=== PATIENT | female | born 1970 | race American Indian/Alaskan Native ===

== ENCOUNTER 2018-04-24 07:14 | Day surgery (SDC) | payer OTHER ==
--- NOTE | 2018-04-24 07:56 | Short Stay Summary ---
Short Stay Documentation Date of service: 04/24/18 Narrative H&P: 47y/o with abnormal uterine bleeding. Pelvic ultrasound demonstrates an endometrial polyp. - History Principal diagnosis: Endometrial polyp; DUB Past Medical History: diabetes, hypertension Past Surgical History: , Other (hand surgery) Social history: - Allergies and Medications Current Medications: Allergies No Known Allergies Allergy (Verified 04/22/18 12:04) Home Medications Medication Instructions Recorded Confirmed Last Taken Type Carvedilol [Coreg] 12.5 mg PO BID 04/22/18 04/22/18 Unknown History Hydralazine HCl 50 mg PO TID 04/22/18 04/22/18 Unknown History Insulin Glargine,Hum.rec.anlog 30 units SQ QHS 04/22/18 04/22/18 Unknown History [Lantus] Insulin Lispro [Humalog 100 0 units SQ AC 04/22/18 04/22/18 Unknown History UNITS/ML Kwikpen] Linagliptin [Tradjenta] 5 mg PO DAILY 04/22/18 04/22/18 Unknown History Losartan Potassium 25 mg PO DAILY 04/22/18 04/22/18 Unknown History amLODIPine [Norvasc] 10 mg PO DAILY 04/22/18 04/22/18 Unknown History - Physical exam General appearance: no acute distress Integumentary: no rash HEENT: Atraumatic Lungs: Clear to auscultation Breasts: deferred Heart: Regular rate Gastrointestinal: normal Female Genitourinary: deferred Rectal Exam: deferred - Brief post op/procedure progress note Date of procedure: 04/24/18 Pre-op diagnosis: dysfunctional uterine bleeding Post-op diagnosis: same Procedure: Hysteroscopy Endometrial ablation via NovaSure Anesthesia: GETA Surgeon: ANIKA STEWARD Estimated blood loss: minimal Pathology: none Condition: stable - Hospital course Hospital course: The patient was admitted the day of surgery and underwent an an immature ovulation. Please see operative note for details of surgery. Her postoperative course was uneventful. - Disposition Condition at discharge: Good Disposition: DC-01 TO HOME OR SELFCARE Short Stay Discharge Plan Activity: other (pelvic rest for 1 week) Diet: regular Additional Instructions: Scheduled follow-up with Dr. Ortega and 4 weeks Prescriptions: Ibuprofen [Motrin] 800 mg PO Q8HR PRN #60 tablet PRN Reason: Pain, Mild (1-3) oxyCODONE /ACETAMINOPHEN [Percocet 5/325] 1 tab PO Q6HR PRN #30 tablet PRN Reason: Pain
--- NOTE | 2018-04-24 09:07 | Anesthesia Day of Surgery ---
Anesthesia Day of Surgery - Day of Surgery Patient Examined: Yes Patient H&P Reviewed: Yes Patient is NPO: Yes Beta Blockers: Yes
--- NOTE | 2018-04-24 09:07 | Anesthesia Consultation ---
Anesthesia Consult and Med Hx Date of service: 04/24/18 - Airway Anesthetic Teeth Evaluation: Good ROM Head & Neck: Adequate Mental/Hyoid Distance: Adequate Mallampati Class: Class I Intubation Access Assessment: Good - Pulmonary Exam CTA: Yes - Cardiac Exam Cardiac Exam: RRR - Pre-Operative Health Status ASA Pre-Surgery Classification: ASA3 Proposed Anesthetic Plan: General - Pre-Anesthesia Comment Pre-Anesthesia Comments: patient took half lantus dose last night - Pulmonary Hx Smoking: No SOB: No - Cardiovascular System Hx Hypertension: Yes (15 YEARS) Hx Heart Attack/AMI: No Hx Angina: No - Central Nervous System Hx Seizures: No CVA: No Hx Psychiatric Problems: No - Gastrointestinal Hx Ulcer: No Hx Gastroesophageal Reflux Disease: No - Endocrine Hx Renal Disease: Yes (STAGE 3) - Other Systems Hx Alcohol Use: No Hx Substance Use: No Hx Cancer: No
[2018-04-24] MEDS ORDERED: NARCAN 0.4 MG/1 ML IV PRN (09:08)
[2018-04-24] MEDS ORDERED: TYLENOL PO PRN (09:08)
[2018-04-24] MEDS ORDERED: TORADOL IV PRN (09:08)
[2018-04-24] MEDS ORDERED: ZOFRAN IV PRN (09:08)
[2018-04-24] MEDS ORDERED: DILAUDID IV PRN (09:08)
[2018-04-24] MEDS ORDERED: DEMEROL IV PRN (09:08)
[2018-04-24] MEDS ORDERED: VERSED IV NR (09:25)
[2018-04-24 09:58] LABS: Hematocrit 24.2 % (30.3-42.9); Hemoglobin 7.9 gm/dl (10.1-14.3); Mean Corpuscular HGB Conc 33 % (30-34); Platelet Count 287 K/mm3 (140-440); Red Blood Count 3.49 M/mm3 (3.65-5.03); Red Cell Distribution Width 15.7 % (13.2-15.2)
[2018-04-24 09:59] LABS: Mean Corpuscular Hemoglobin 23 pg (28-32); Mean Corpuscular Volume 69 fl (79-97)
[2018-04-24] MEDS ORDERED: LACTATED RINGERS 1,000 ML IV SCH (10:00)
[2018-04-24 10:32] LABS: Anisocytosis 1+; Band Neutrophils # (Manual) 0.2 K/mm3; Hypochromasia 1+; Total Cells Counted 100
[2018-04-24 10:33] LABS: Platelet Estimate Consistent w Auto
[2018-04-24] MEDS ORDERED: NACL 0.9% IR ONE (11:15)
--- NOTE | 2018-04-24 11:33 | Operative Report ---
Operative Report Operative Report: Date of procedure: 04/24/2018 Pre-operative diagnosis: Dysfunctional uterine bleeding Post-operative diagnosis: Same as above Procedure name(s): Hysteroscopy; endometrial ablation via NovaSure Surgeon: Jolie Armenta M.D. Erp Business Analyst: None Anesthesia: General endotracheal anesthesia Findings normal endometrial lining Indication: 37-year-old 011 with a history of dysfunctional uterine bleeding. The patient underwent endometrial biopsy that demonstrated findings of endometrial polyp. Procedure The patient was taken to the operating room and given general tracheal anesthesia without complication. The patient was prepped and draped in a normal sterile fashion. A bivalve speculum was placed in the patient's vagina single-tooth tenaculums placed on the anterior lip of the cervix. The cervical os was dilated with graduated dilators. A uterine sound was inserted. The hysteroscope was then placed. Insufflation of the uterine cavity was performed with normal saline. Gen. survey of the uterine cavity revealed normal endometrial lining. The hysteroscope was then removed. The NovaSure device was then inserted. The endometrial length was 5.5 cm and the uterine width was for 4.4 cm. The device was engaged and it passed the surveillance of the uterine cavity. The NovaSure device was then deployed with a energy of 133 W that lasted for 1 minute 30 seconds. The NovaSure device was then removed. The hysteroscope was again reinserted. There was evidence of charring of the endometrial surface. The remainder of the vaginal instruments were then removed atraumatically. The patient was then successfully extubated taken to the recovery room. All sponge laps and needle counts were correct 2.
[2018-04-24] MEDS ORDERED: DILAUDID ONE ×2 (11:37→12:01)
[2018-04-24] MEDS: DILAUDID IV PRN ×3 (11:41→12:05)
[2018-04-24] MEDS ORDERED: D50W (25GM) Vial IV ONE (11:49)
[2018-04-24] MEDS ORDERED: D50W (25GM) Syringe IV ONE (12:00)
--- NOTE | 2018-04-24 14:14 | Post Anesthesia Evaluation ---
- Post Anesthesia Evaluation Patient Participated: Yes Airway Patent: Yes Stable Respiratory Function: Yes Nausea/Vomiting: No Temp > 96.8F: Yes Pain Manageable: Yes Adequeate Hydration: Yes Anesthesia Complications: No Block Receding Appropriately: Not Applicable Patient on Ventilator: No
[2018-04-24 16:31] VITALS: BP 165/87
== END 2018-04-24 13:20 | disposition home or self-care (01) ==
LOC: OR 07:14
PROVIDERS: ATTEND Obstetrics & Gynecology
DX: N93.8 Other specified abnormal uterine and vaginal bleeding (principal); I12.9 Hypertensive chronic kidney disease with stage 1 through stage 4 chronic kidney disease, or unspecified chronic kidney disease; E11.22 Type 2 diabetes mellitus with diabetic chronic kidney disease; N18.3 Chronic kidney disease, stage 3 (moderate); Z79.4 Long term (current) use of insulin; Z98.890 Other specified postprocedural states
CPT/HCPCS: 36415; 58563; 81025; 82962; 85007; 85025; A4217; J1170; J7120

== ENCOUNTER 2019-06-18 08:08 | Observation (INO) | payer OTHER ==
[2019-06-16 12:31] LABS: Hematocrit 32.9 % (30.3-42.9); Hemoglobin 10.7 gm/dl (10.1-14.3); Mean Corpuscular HGB Conc 33 % (30-34); Platelet Count 293 K/mm3 (140-440); Red Blood Count 4.82 M/mm3 (3.65-5.03); Red Cell Distribution Width 16.9 % (13.2-15.2)
[2019-06-16 12:37] LABS: Calcium 8.5 mg/dL (8.4-10.2); Mean Corpuscular Volume 68 fl (79-97)
[2019-06-16 13:24] LABS: Basophils % (Manual) 0 % (0.0-1.8); Total Cells Counted 100
[2019-06-16 13:25] LABS: Anisocytosis 1+; Hypochromasia 1+; Ovalocytes Few; Platelet Estimate Consistent w Auto
--- NOTE | 2019-06-17 08:11 | Anesthesia Consultation ---
Anesthesia Consult and Med Hx Date of service: 06/17/19 - Airway Anesthetic Teeth Evaluation: Good ROM Head & Neck: Adequate Mental/Hyoid Distance: Adequate Mallampati Class: Class I Intubation Access Assessment: Good - Pulmonary Exam CTA: Yes - Cardiac Exam Cardiac Exam: RRR - Pre-Operative Health Status ASA Pre-Surgery Classification: ASA3 Proposed Anesthetic Plan: General Nerve Block: TAP - Pulmonary Hx Smoking: No Hx Respiratory Symptoms: No - Cardiovascular System Hx Hypertension: Yes (16 YEARS) Hx Heart Attack/AMI: No Hx Percutaneous Transluminal Coronary Angioplasty (PTCA): No Hx Cardia Arrhythmia: No Hx Valvular Heart Disease: No - Central Nervous System Hx Seizures: No CVA: No Hx Psychiatric Problems: No - Gastrointestinal Hx Gastroesophageal Reflux Disease: No - Endocrine Hx Renal Disease: Yes (CKD 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 Stress test 03/2019: normal EF, neg ischemia. TTE 04/2019: EF 55%, mild LVH, no significant valvular lesions.
--- NOTE | 2019-06-18 07:16 | History and Physical Report ---
History of Present Illness Date of examination: 06/18/19 Date of admission: 06/18/2019 Chief complaint: chronic pelvic pain History of present illness: 48y/o with a history of chronic pelvic pain. The patient had a history of abnormal bleeding which has improved since her endometrial ablation however she continues to have debilitating pelvic pain that affects her daily activities. She has elected for definitive surgical management. Past History Past Medical History: hypertension, diabetes Past Surgical History: section, other (endometrial ablation; hysteroscopy; hand surgery) Social history: - Obstetrical History : 2 Para: 1 Hx # Term Pregnancies: 1 Number of Pregnancies: 0 Spontaneous Abortions: 0 Induced : 1 Number of Living Children: 0 Medications and Allergies Allergies Allergy/AdvReac Type Severity Reaction Status Date / Time No Known Allergies Allergy Verified 06/11/19 16:30 Home Medications Medication Instructions Recorded Confirmed Last Taken Type Hydralazine HCl 50 mg PO TID 04/22/18 06/16/19 04/23/18 History Insulin Glargine,Hum.rec.anlog 16 units SQ QHS 04/22/18 06/16/19 04/23/18 History [Lantus] Insulin Lispro [Humalog 100 0 units SQ AC 04/22/18 06/16/19 04/23/18 History UNITS/ML Kwikpen] Linagliptin [Tradjenta] 5 mg PO DAILY 04/22/18 06/16/19 04/23/18 History Losartan Potassium 25 mg PO DAILY 04/22/18 06/16/19 04/23/18 History RX: Carvedilol [Coreg] 12.5 mg PO BID 04/22/18 06/16/19 04/24/18 06:00 History amLODIPine [Norvasc] 10 mg PO DAILY 04/22/18 06/16/19 Unknown History Ergocalciferol (Vitamin D2) 50,000 unit PO QWEEK 06/16/19 06/16/19 Unknown History [Vitamin D2] RX: Calcitriol [Rocaltrol] 0.25 mcg PO DAILY 06/16/19 06/16/19 Unknown History RX: Furosemide [Lasix TAB] 20 mg PO DAILY 06/16/19 06/16/19 Unknown History RX: Sodium Bicarbonate 20 g PO BID 06/16/19 06/16/19 Unknown History Active Meds: Active Medications Celecoxib (Celebrex) 200 mg PO PREOP NR Stop: 06/18/19 23:59 Fentanyl (Sublimaze) 100 mcg IV ONCE PRN PRN Reason: sedation for nerve block Stop: 06/18/19 23:59 Gabapentin (Neurontin) 300 mg PO PREOP NR Stop: 06/18/19 23:59 Lactated Ringer's (Lactated Ringers) 1,000 mls @ 100 mls/hr IV DIRECT MANOLO Midazolam HCl (Versed) 2 mg IV PREOP NR Stop: 06/18/19 23:59 Review of Systems All systems: negative Genitourinary: pelvic pain - Vital Signs Vital signs: Vital Signs Temp Pulse Resp BP Pulse Ox 97.6 F 74 20 173/85 100 06/16/19 11:30 06/16/19 11:30 06/16/19 11:30 06/16/19 11:30 06/16/19 11:30 Temp Pulse Resp BP Pulse Ox 97.6 F 74 20 173/85 100 06/16/19 11:30 06/16/19 11:30 06/16/19 11:30 06/16/19 11:30 06/16/19 11:30 - Physical Exam Breasts: Positive: deferred Cardiovascular: Regular rate Lungs: Positive: Clear to auscultation Abdomen: Positive: normal appearance Results Result Diagrams: 06/16/19 11:35 06/16/19 11:35 All other labs normal. Assessment and Plan - Patient Problems (1) Chronic pelvic pain in female Status: Acute Plan to address problem: will proceed with a robotic hysterectomy and BSO
[~2019-06-18 08:08] MED LIST: ANCEF/STERILE WATER 2 GM/20 ML 2 GM/20 ML SYRINGE IV NR; LACTATED RINGERS 1,000 ML IV SCH; NEURONTIN PO NR; SUBLIMAZE IV PRN; VERSED IV NR
[2019-06-18] MEDS ORDERED: SUBLIMAZE IV PRN (08:55)
--- NOTE | 2019-06-18 08:55 | Anesthesia Day of Surgery ---
Anesthesia Day of Surgery - Day of Surgery Patient Examined: Yes Patient H&P Reviewed: Yes Patient is NPO: Yes
[2019-06-18] MEDS ORDERED: MARCAINE 0.25% INFILTRATI ONE (09:08)
[2019-06-18] MEDS ORDERED: D50W (25GM) Syringe IV ONE (09:29)
[2019-06-18] MEDS ORDERED: NACL 0.9% IR ONE ×2 (10:10)
[2019-06-18] MEDS ORDERED: NEOSPORIN GU IR ONE ×2 (10:10→10:54)
[2019-06-18] MEDS ORDERED: DIPRIVAN 10 MG/ML IV ONE (10:21)
[2019-06-18] MEDS ORDERED: SUBLIMAZE ONE ×2 (10:21→13:04)
[2019-06-18] MEDS ORDERED: ZEMURON IV ONE (10:50)
[2019-06-18] MEDS ORDERED: XYLOCAINE MPF 2% ONE (10:50)
[2019-06-18] MEDS ORDERED: DECADRON ONE (10:51)
[2019-06-18] MEDS ORDERED: BLOXIVERZ ONE (10:51)
[2019-06-18] MEDS ORDERED: ZOFRAN ONE (10:51)
[2019-06-18] MEDS ORDERED: ROBINUL ONE (10:52)
[2019-06-18] MEDS ORDERED: PERCOCET 5/325 PO PRN (12:10)
[2019-06-18] MEDS ORDERED: ZOFRAN IV PRN (12:10)
[2019-06-18] MEDS ORDERED: IBUPROFEN PO PRN (12:10)
[2019-06-18] MEDS ORDERED: MORPHINE IV PRN (12:10)
[2019-06-18] MEDS ORDERED: AMBIEN PO PRN (12:10)
[2019-06-18] MEDS ORDERED: TYLENOL PO PRN (12:10)
--- NOTE | 2019-06-18 12:10 | Operative Report ---
Operative Report Operative Report: Date of surgery: 06/18/2019 Preoperative diagnoses: Chronic pelvic pain and dysmenorrhea Postoperative diagnoses: Same as above Procedure: Robotic hysterectomy and bilateral salpingo-oophorectomy; lysis of adhesions Surgeon: Jolie Armenta M.D. Shelter Case Manager: Alissa Alvarado Anesthesia: Gen. endotracheal anesthesia Estimated blood loss: 50 mL Pathology: Uterus, cervix, bilateral tubes and ovaries Indication: 48-year-old with a history of worsening chronic pelvic pain and dysmenorrhea. The patient previously undergone endometrial ablation but continued to have worsening of her pelvic pain. She has elected to undergo definitive surgical management Procedure: The patient was taken to the operating room and given general endotracheal anesthesia without complication. She is prepped and draped in a normal sterile fashion. A bivalve speculum was placed in the patient's vagina and a single- tooth tenaculum placed on the anterior lip of the cervix. The uterus was sounded with the uterine sound. A [employer] uterine manipulator was placed in the bivalve speculum was then removed. Attention was then turned to the patient's abdomen where a 12 millimeter supra umbilical skin incision was then made. A Veress needle was placed and peritoneal entry was verified water-filled syringe. Insufflation of the peritoneal cavity was performed with CO2 gas. The 12 mm trocar was then placed under direct visualization. An additional 8 mm trocar was placed on the patient's left and right lateral side just opposite of the supraumbilical trocar. An additional 5 mm right lateral trocar was then placed as the accessory port. The Joss Vazquez device was used to close the fascia of the 12 mm incision. General survey revealed findings of omental adhesions to the anterior abdominal wall. Also findings of a left ovarian cyst. The patient was then placed in steep Trendelenburg. The da Alexis robot was then engaged. A fenestrated forcep was placed in arm 2 and a vessel sealer was placed in arm 1. The surgeon then transferred to the surgical console. The vessel sealer was used to coagulate and transect the adhesions improving visualization into the pelvis. The infundibulopelvic ligament was then isolated on the right. The vessel sealer was used to coagulate the ligament which was then transected. The tube and ovary were transected from the supply. The round ligament was then coagulated and transected also. The vesicouterine peritoneum was then entered from the patient's right side. The uterine vessels were then coagulated with the vessel sealer. The vessels were then transected . Attention was then turned to the patient's left side where the infundibulopelvic ligament and mesosalpinx were again isolated coagulated and transected. The vesical peritoneum was then entered from the left and joined in the midline. Peritoneum was reflected off of the lower uterine segment. Uterine vessels were then coagulated and then transected. The blood supply to the uterus was adequately contained, a posterior colpotomy was made. The V care ring was visualized. Posterior colpotomy was created with the monopolar scissors. The incision was continued circumferentially until anterior colpotomy was made. The cervix and uterus were amputated from the vaginal cuff. The uterus was then removed along with the tubes and ovaries bilaterally through the vagina and a warm laparotomy sponge was placed and maintain the pneumoperitoneum. The vaginal cuff was then closed in a running fashion with V lock suture. Irrigation of the pelvis was performed. Hemoblast was applied to the incision. The skin was then reapproximated with 4-0 Monocryl. The tissue was sent to pathology which included the cervix, uterus, tubes and ovaries. The patient was then successfully extubated. She was then taken to the recovery room in stable condition. All sponge laps and needle counts were correct x2.
[2019-06-18] MEDS ORDERED: LACTATED RINGERS 1,000 ML ONE (12:22)
[2019-06-18] MEDS ORDERED: D5LR 1,000 ML IV SCH (13:00)
[2019-06-18] MEDS ORDERED: TORADOL ONE (13:04)
[2019-06-18] MEDS: TORADOL IV SCH ×2 (13:07→18:06)
[2019-06-18] MEDS ORDERED: D5LR 1,000 ML IV ONE (13:33)
--- NOTE | 2019-06-18 15:58 | Post Anesthesia Evaluation ---
- Post Anesthesia Evaluation Patient Participated: Yes Airway Patent: Yes Stable Respiratory Function: Yes Nausea/Vomiting: No Temp > 96.8F: Yes Pain Manageable: Yes Adequeate Hydration: Yes Anesthesia Complications: No
[2019-06-18] MEDS ORDERED: HumuLIN R SUB-Q ONE (17:37)
[2019-06-19 06:04] LABS: Hematocrit 27.3 % (30.3-42.9); Hemoglobin 8.8 gm/dl (10.1-14.3)
--- NOTE | 2019-06-19 08:45 | Progress Note ---
Assessment and Plan - Patient Problems (1) Chronic pelvic pain in female Current Visit: No Status: Acute Plan to address problem: patient doing well discharge home Subjective - Subjective Date of service: 06/19/19 Interval history: Patient has voided and is tolerating diet. States pain is controlled. Patient reports: appetite normal, voiding normally, pain well controlled Objective - Vital Signs Latest vital signs: Vital Signs Temp Pulse Pulse Resp BP BP Pulse Ox 06/19/19 04:00 98.7 F 74 18 121/70 06/18/19 23:30 98.4 F 66 18 124/71 06/18/19 20:00 74 16 06/18/19 19:30 98.7 F 71 16 133/77 06/18/19 16:30 98 F 67 18 107/57 98 06/18/19 15:47 97.5 F L 67 18 124/74 99 06/18/19 15:43 98 06/18/19 13:15 60 11 L 94/50 100 06/18/19 12:55 61 13 102/56 100 06/18/19 12:50 61 32 H 102/60 100 06/18/19 12:45 62 12 101/57 100 06/18/19 12:40 61 21 96/54 100 06/18/19 12:35 60 14 96/54 100 06/18/19 12:29 9.5 F L 61 19 93/50 100 06/18/19 09:51 84 10 L 152/80 100 06/18/19 09:46 84 17 136/76 100 06/18/19 09:41 84 15 139/79 100 06/18/19 08:45 98.6 F 79 18 136/81 100 Intake and Output 06/18/19 06/19/19 06/19/19 22:59 06:59 14:59 Intake Total 120 300 Output Total 400 2000 600 Balance -280 -1700 -600 Intake: Oral 120 Intake, Free Water 300 Output: Urine 400 2000 600 Indwelling Catheter 400 900 Void 1100 600 Other: Total, Intake Amount 120 Total, Output Amount 400 500 600 Voiding Method Indwelling Catheter # Voids Void 2 3 - Exam Abdomen: Present: normal appearance, soft - Labs Labs: Abnormal lab results 06/18/19 06/18/19 06/18/19 Range/Units 09:20 10:10 12:55 Hgb (10.1-14.3) gm/dl Hct (30.3-42.9) % POC Glucose 65 L 107 H 148 H (70-105) 06/18/19 06/19/19 Range/Units 17:03 05:13 Hgb 8.8 L (10.1-14.3) gm/dl Hct 27.3 L (30.3-42.9) % POC Glucose 217 H (70-105)
--- NOTE | 2019-06-19 08:48 | Discharge Summary ---
Providers - Providers Date of Admission: 06/18/19 12:10 Date of discharge: 06/19/19 Attending physician: ANIKA STEWARD Primary care physician: DOLLY MENESES Hospitalization Reason for admission: other (chronic pelvic pain) Procedure: other (robotic hysterectomy/BSO) Incision: normal Discharge diagnosis: other (Chronic pelvic pain) Hospital course: Patient admitted the day of surgery and underwent a robotic hyst/BSO. See op note. Postop uneventful Condition at discharge: Good Disposition: DC-01 TO HOME OR SELFCARE - Discharge Diagnoses (1) Chronic pelvic pain in female Status: Acute Plan - Discharge Medications Prescriptions: Ibuprofen [Motrin] 800 mg PO Q8HR PRN #60 tablet PRN Reason: Pain, Mild (1-3) oxyCODONE /ACETAMINOPHEN [Percocet 5/325] 1 tab PO Q6HR PRN #30 tablet PRN Reason: Pain - Provider Discharge Summary Activity: no sex for 6 weeks, no heavy lifting 4 weeks, no strenuous exercise Diet: routine Instructions: routine Additional instructions: [] Smoking cessation referral if applicable(refer to patient education folder for contact #) [] Refer to [facility] Booklet Call your doctor immediately for: * Fever > 100.5 * Heavy vaginal bleeding ( >1 pad per hour) * Severe persistent headache * Shortness of breath * Reddened, hot, painful area to leg or breast * Drainage or odor from incision. * Keep incision clean and dry at all times and follow doctor's instructions regarding bathing/showering schedule followup in 4 weeks - Follow up plan
[2019-06-19 10:00] VITALS: BP 144/72
[2019-06-19] MEDS: TORADOL IV SCH (11:05)
== END 2019-06-19 12:00 | disposition home or self-care (01) ==
LOC: OR 08:08 → OB 12:10
PROVIDERS: ADMIT Obstetrics & Gynecology; ATTEND Obstetrics & Gynecology
DX: N94.6 Dysmenorrhea, unspecified (principal); I10 Essential (primary) hypertension; R10.2 Pelvic and perineal pain; E11.9 Type 2 diabetes mellitus without complications; G89.29 Other chronic pain
CPT/HCPCS: 36415; 58552; 64450; 80048; 82962; 84703; 85007; 85014; 85018; 85025; 86850; 86900; 86901; 88307; 96372; 96374; 96375; 96376; A4217; G0378; J0690; J1100; J1885; J2250; J2405; J2704; J2710; J3010; J7120; J7121; S2900; J1815